=== PATIENT | female | born 1960 | race Caucasian/White ===

== ENCOUNTER → 2022-10-30 | Outpatient (CLI) | payer BC ==
--- NOTE | 2022-10-30 11:42 | US ---
EXAMINATION TYPE: US carotid duplex BILAT DATE OF EXAM: 10/30/2022 COMPARISON: NONE CLINICAL HISTORY: I87.8 DISORDER OF VEINS. enlarged neck per physician, no h/o stroke TECHNIQUE: Carotid duplex ultrasound examination. Indirect Doppler criteria was utilized. FINDINGS: EXAM MEASUREMENTS: RIGHT: Peak Systolic Velocity (PSV) cm/sec ----- Right CCA: 72.8 ----- Right ICA: 79.1 ----- Right ECA: 67.4 ICA/CCA ratio: 1.1 RIGHT: End Diastole cm/sec ----- Right CCA: 19.4 ----- Right ICA: 30.2 ----- Right ECA: 10.4 LEFT: Peak Systolic Velocity (PSV) cm/sec ----- Left CCA: 82.6 ----- Left ICA: 109.5 ----- Left ECA: 53.5 ICA/CCA ratio: 1.3 LEFT: End Diastole cm/sec ----- Left CCA: 25.9 ----- Left ICA: 37.0 ----- Left ECA: 15.7 VERTEBRALS (direction of flow): Right Vertebral: Antegrade Left Vertebral: Antegrade Rhythm: Normal GIS TECHNICIAN NOTES: Mild heterogeneous plaque bilateral bulbs with no significant stenosis IMPRESSION: No evidence for hemodynamically significant stenosis Criteria for Assigning % of Stenosis / Diameter reduction (Estimation based on the indirect measurements of the internal carotid artery velocities (ICA PSV). 1. Normal (no stenosis)=ICA PSV < 125 cm/s: ratio < 2.0: ICA EDV<40 cm/s. 2. Less than 50% stenosis=ICA PSV < 125 cm/s: ratio < 2.0: ICA EDV<40 cm/s. 3. 50 to 69% stenosis=ICA PSV of 125 to 230 cm/s: ration 2.0 ? 4.0: ICA EDV 40-100 cm/s. 4. Greater than 70% stenosis to near occlusion= ICA PSV > 230 cm/s: ratio > 4.0: ICA EDV > 100 cm/s. 5. Near occlusion= ICA PSV velocities may be low or undetectable: variable ratio and ICA EDV. 6. Total occlusion=unable to detect flow.
--- NOTE | 2022-11-03 09:23 | MM ---
Reason for Exam: Screening (asymptomatic). Last mammogram was performed 7 year(s) and 3 month(s) ago. Patient History: Menarche at age 14. First Full-Term at age 22. Postmenopausal. Patient has history of breast feeding. Risk Values: Katalina 5 year model risk: 1.3%. NCI Lifetime model risk: 6.4%. Prior Study Comparison: 07/27/2015 Bilateral Screening Mammogram, [facility] . Tissue Density: There are scattered fibroglandular densities. Findings: Analyzed By CAD. There is no suspicious group of microcalcifications or new suspicious mass in either breast. Benign calcifications within both breasts. Chronic nodularity within the left breast. Overall Assessment: Benign, BI-RAD 2 Management: Screening Mammogram of both breasts in 1 year. A clinical breast exam by your physician is recommended on an annual basis and results should be correlated with mammographic findings. Electronically signed and approved by: Christian Julian D.O.
== END | disposition home or self-care (01) ==
LOC: RADUSWWP 10:44
PROVIDERS: ATTEND Family Medicine
DX: Z12.31 Encounter for screening mammogram for malignant neoplasm of breast (principal); I87.8 Other specified disorders of veins; R22.1 Localized swelling, mass and lump, neck; Z78.0 Asymptomatic menopausal state
CPT/HCPCS: 77063; 77067; 93880

== ENCOUNTER 2023-03-22 16:09 | Emergency (ER) | payer BC ==
[2023-03-22 16:29] VITALS: RESP 18
--- NOTE | 2023-03-22 17:02 | ED ---
Chest Pain HPI - General Chief Complaint: Chest Pain Stated Complaint: positive SVT R arm Time Seen by Provider: 03/22/23 16:33 Source: patient Mode of arrival: ambulatory Limitations: no limitations - History of Present Illness Initial Comments: 62-year-old female with past medical history of DVT/PE who presents to the emergency department with chest pain. Reports that over the past couple of days she has had intermittent sharp shooting chest pain. No associated nausea or vomiting, no fevers chills or cough. No history of coronary disease. 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 She is not currently on any anticoagulation. She felt a lump in her right arm earlier this morning. She went into her primary care office who recommended that she have an ultrasound performed. It demonstrated a superficial thrombophlebitis. Because of her reported chest pain her primary care physician recommended that she have a CT of her chest performed. Patient presents today for this evaluation. She denies any active chest pain right now. No calf pain or swelling. No other alleviating, precipitating or modifying factors - Related Data Home Medications Medication Instructions Recorded Confirmed Aspirin EC [Ecotrin] 325 mg PO DAILY 03/22/23 03/22/23 Famotidine 20 mg PO DAILY 03/22/23 03/22/23 polyethylene glycoL 3350 [Miralax] 17 gm PO DAILY PRN 03/22/23 03/22/23 Allergies Allergy/AdvReac Type Severity Reaction Status Date / Time Iodinated Contrast Media Allergy Dyspnea Verified 03/22/23 18:45 Review of Systems ROS Statement: Those systems with pertinent positive or pertinent negative responses have been documented in the HPI. ROS Other: All systems not noted in ROS Statement are negative. Past Medical History Past Medical History: GERD/Reflux Additional Past Medical History / Comment(s): blood clot left leg History of Any Multi-Drug Resistant Organisms: None Reported Past Surgical History: Bladder Surgery, Hysterectomy Past Psychological History: No Psychological Hx Reported Smoking Status: Never smoker Past Alcohol Use History: Occasional Past Drug Use History: None Reported General Exam Limitations: no limitations General appearance: alert, in no apparent distress Head exam: Present: atraumatic, normocephalic, normal inspection Eye exam: Present: normal appearance, PERRL, EOMI. Absent: scleral icterus, conjunctival injection, periorbital swelling ENT exam: Present: normal exam, mucous membranes moist Neck exam: Present: normal inspection. Absent: tenderness, meningismus, lymphadenopathy Respiratory exam: Present: normal lung sounds bilaterally. Absent: respiratory distress, wheezes, rales, rhonchi, stridor Cardiovascular Exam: Present: regular rate, normal rhythm, normal heart sounds. Absent: systolic murmur, diastolic murmur, rubs, gallop, clicks GI/Abdominal exam: Present: soft, normal bowel sounds. Absent: distended, tenderness, guarding, rebound, rigid Extremities exam: Present: normal inspection, full ROM, normal capillary refill. Absent: tenderness, pedal edema, joint swelling, calf tenderness Back exam: Present: normal inspection Neurological exam: Present: alert, oriented X3, CN II-XII intact Psychiatric exam: Present: normal affect, normal mood Skin exam: Present: warm, dry, intact, normal color. Absent: rash Course Vital Signs 03/22/23 03/22/23 03/22/23 16:26 18:07 20:11 Temperature 97.8 F 98 F 98.6 F Pulse Rate 64 52 L 68 Respiratory 18 18 18 Rate Blood Pressure 116/71 123/70 113/85 O2 Sat by Pulse 98 98 94 L Oximetry Chest Pain MDM - MDM Was pt. sent in by a medical professional or institution (, PA, JAMMER OPERATOR, urgent care, hospital, or [facility]...) When possible be specific @ -Was sent in by her primary care office Did you speak to anyone other than the patient for history (EMS, parent, family, police, friend...)? What history was obtained from this source @ -No Did you review nursing and triage notes (agree or disagree)? Why? @ -I reviewed and agree with nursing and triage notes Were old charts reviewed (outside hosp., previous admission, EMS record, old EKG, old radiological studies, urgent care reports/EKG's, [facility] records)? Report findings @ -No old charts were reviewed Differential Diagnosis (chest pain, altered mental status, abdominal pain women, abdominal pain men, vaginal bleeding, weakness, fever, dyspnea, syncope, headache, dizziness, GI bleed, back pain, seizure, CVA, palpatations, mental health, musculoskeletal)? @ -Differential Chest Pain: Stable Angina, Unstable Angina, STEMI, NSTEMI Aortic Dissection, Pneumothorax, Musculoskeletal, Esophageal Spasm GERD, Cholecystitis, Pancreatitis, Zoster, this is not meant to be an all-inclusive list. EKG interpreted by me (3pts min.). @ -yes and demonstrates sinus bradycardia with a rate of 54. GA interval 190. QRS 96. QTC of 420. No acute ST segment elevations. Inverted T-wave in lead 3 X-rays interpreted by me (1pt min.). @ -None done CT interpreted by me (1pt min.). @ -Yes and demonstrates no PE U/S interpreted by me (1pt. min.). @ -None done What testing was considered but not performed or refused? (CT, X-rays, U/S, labs)? Why? @ -None What meds were considered but not given or refused? Why? @ -None Did you discuss the management of the patient with other professionals (professionals i.e. , PA, JAMMER OPERATOR, lab, RT, psych nurse, psychotherapist social worker, pyridine operator, teacher, community arts officer, case briefer)? Give summary @ -No Was smoking cessation discussed for >3mins.? @ -No Was critical care preformed (if so, how long)? @ -No Were there social determinants of health that impacted care today? How? (Homelessness, low income, unemployed, alcoholism, drug addiction, transportation, low edu. Level, literacy, decrease access to med. care, senior living, rehab)? @ -No Was there de-escalation of care discussed even if they declined (Discuss DNR or withdrawal of care, Hospice)? DNR status @ -No What co-morbidities impacted this encounter? (DM, HTN, Smoking, COPD, CAD, Cancer, CVA, ARF, Chemo, Hep., AIDS, mental health diagnosis, sleep apnea, morbid obesity)? @ -History of PE and DVT Was patient admitted / discharged? Hospital course, mention meds given and route, prescriptions, significant lab abnormalities, going to OR and other pertinent info. @ -Upon arrival patient was placed in room 7. A thorough history and physical exam was performed. IV access is established and laboratory studies are conducted. Patient has no active chest pain. She is sent for a CT of her chest as she is not a low risk candidate. CT does not demonstrate a PE. These results are discussed the patient. She is stable for discharge home at this time. Instructed to follow back up again with her primary care doctor. May use warm compresses for her superficial clots in her right arm. Return for any new or worsening symptoms. Patient was agreeable to this plan and she was discharged in stable condition Undiagnosed new problem with uncertain prognosis? @ -Yes Drug Therapy requiring intensive monitoring for toxicity (Heparin, Nitro, Insulin, Cardizem)? @ -No Were any procedures done? @ -No Diagnosis/symptom? @ -acute Chest pain, acute superficial thrombus right arm, hx pe/dvt Acute, or Chronic, or Acute on Chronic? @ -See above Uncomplicated (without systemic symptoms) or Complicated (systemic symptoms)? @ -Complicated Side effects of treatment? @ -No Exacerbation, Progression, or Severe Exacerbation? @ -No Poses a threat to life or bodily function? How? (Chest pain, [place], [place], pneumonia, PE, COPD, DKA, ARF, appy, cholecystitis, CVA, Diverticulitis, Homicidal, Suicidal, threat to staff... and all critical care pts) @ -No Disposition Clinical Impression: Chest pain Disposition: HOME SELF-CARE Condition: Stable Instructions (If sedation given, give patient instructions): Chest Pain (ED) Additional Instructions: Please follow-up with your primary care doctor and return for any new or worsening symptoms Is patient prescribed a controlled substance at d/c from ED?: No Referrals: Ken Hudson DO [Primary Care Provider] - 1-2 days Time of Disposition: 19:26
[2023-03-22 17:25] LABS: Basophils % (A) 0 %; Eosinophils # (A) 0.3 k/uL (0-0.7); Eosinophils % (A) 4 %; HCT 43.8 % (34.0-46.0); HGB 14.3 gm/dL (11.4-16.0); Lymphocytes # (A) 1.7 k/uL (1.0-4.8); Lymphocytes % (A) 29 %; MCH 30.9 pg (25.0-35.0); MCHC 32.7 g/dL (31.0-37.0); MCV 94.4 fL (80.0-100.0); Monocytes # (A) 0.3 k/uL (0-1.0); Monocytes % (A) 4 %; Neutrophils # (A) 3.7 k/uL (1.3-7.7); Neutrophils % (A) 60 %; Platelet Count 216 k/uL (150-450); RBC 4.64 m/uL (3.80-5.40); RDW 13.4 % (11.5-15.5); WBC 6.1 k/uL (3.8-10.6)
[2023-03-22 17:42] LABS: ALT 16 U/L (4-34); AST 30 U/L (14-36); African American GFR (CKD) >90 (>60 ml/min/1.73 sqM); Albumin 3.9 g/dL (3.5-5.0); Alkaline Phosphatase 105 U/L (38-126); Anion Gap 6 mmol/L; Blood Urea Nitrogen 8 mg/dL (7-17); Calcium 9.3 mg/dL (8.4-10.2); Carbon Dioxide 26 mmol/L (22-30); Chloride 107 mmol/L (98-107); Glucose 86 mg/dL (74-99); Magnesium 2.1 mg/dL (1.6-2.3); Non-African American GFR(CKD) 79 (>60 ml/min/1.73 sqM); Sodium 139 mmol/L (137-145); Total Bilirubin 0.5 mg/dL (0.2-1.3); Total Protein 7.1 g/dL (6.3-8.2)
[2023-03-22] MEDS ORDERED: diphenhydrAMINE 50 MG/ML 1 ML VIAL IVP STA (17:46)
[2023-03-22] MEDS ORDERED: FAMOTIDINE 20 MG/2 ML VIAL IV STA (17:46)
[2023-03-22] MEDS ORDERED: methylPREDNISolone SOD SUCCI 125 MG/2 ML VIAL IV STA (17:46)
[2023-03-22 17:47] LABS: Partial Thromboplastin Time 23.5 sec (22.0-30.0); Prothrombin Time 10.7 sec (9.0-12.0)
[2023-03-22 17:50] LABS: NT-Pro-B-Type Natriuretic Pept 81 pg/mL
--- NOTE | 2023-03-22 18:50 | CT ---
EXAMINATION TYPE: CT chest angio for PE CT DLP: 677.8 mGycm, Automated exposure control for dose reduction was used. DATE OF EXAM: 03/22/2023 6:43 PM COMPARISON: None CLINICAL INDICATION:Female, 62 years old with history of chest pain, hx dvt/pe; history of PE, chest pain TECHNIQUE/CONTRAST: CTA scan of the thorax is performed with IV Contrast, patient injected with 100 cc mL of Isovue 370, pulmonary embolism protocol. MIP images are created and reviewed. FINDINGS: Pulmonary Artery: There is no evidence for a filling defect within the pulmonary vasculature to sugge st acute pulmonary embolism. The pulmonary artery is of normal size. Lungs/Pleura: No evidence of focal consolidation, pleural effusion or pneumothorax. Left lower lobe s ubsegmental atelectasis. Airway: Large airways are patent. Heart: Heart is within normal limits for size.. No pericardial effusion. Vasculature: No evidence of aortic aneurysm.. Collateral vessel identified from the left subclavian v ein to the SVC. Mediastinum: No gross evidence of adenopathy. Musculoskeletal: Mild degenerative disc disease changes are present throughout the thoracolumbar spin e. No acute osseous abnormality. Soft Tissues: Unremarkable. Lower neck: No significant findings. Upper Abdomen: Large hiatal hernia containing most of the stomach. Subcentimeter hypodense focus with in the right hepatic lobe which is too small to characterize.. IMPRESSION: 1. No evidence of pulmonary embolism. 2. Large hiatal hernia containing most of the stomach.
[2023-03-22 20:15] VITALS: BP 113/85; PULSE 68; TEMP 98.6
== END 2023-03-22 20:16 | disposition home or self-care (01) ==
LOC: EC 16:09
DX: I82.90 Acute embolism and thrombosis of unspecified vein (principal); R07.9 Chest pain, unspecified; R00.1 Bradycardia, unspecified; K21.9 Gastro-esophageal reflux disease without esophagitis; Z79.82 Long term (current) use of aspirin; Z79.899 Other long term (current) drug therapy; Z86.711 Personal history of pulmonary embolism; Z86.718 Personal history of other venous thrombosis and embolism
CPT/HCPCS: 36415; 93005; 85379; 83880; 80053; 83735; 84484; 85025; 85610; 85730; 71275; 99285; 96374; 96375 ×2; J1200; J2930; J3490; Q9967

== ENCOUNTER → 2023-03-22 | Outpatient (CLI) | payer BC ==
--- NOTE | 2023-03-22 16:29 | US ---
EXAMINATION TYPE: US venous doppler duplex LE LT DATE OF EXAM: 03/22/2023 3:32 PM COMPARISON: NONE CLINICAL INDICATION: Female, 62 years old with history of R22.32 HX BLOOD CLOT M79.605 HX BLOOD CLOT; HX dvt. On aspirin. No redness or swelling. SIDE PERFORMED: Left TECHNIQUE: The lower extremity deep venous system is examined utilizing real time linear array sonog jacquelyn with graded compression, doppler sonography and color-flow sonography. VESSELS IMAGED: Common Femoral Vein Deep Femoral Vein Greater Saphenous Vein * Femoral Vein Popliteal Vein Small Saphenous Vein * Proximal Calf Veins (* superficial vessels) Grayscale, color doppler, spectral doppler imaging performed of the deep veins of the lower extremiti es. There is normal flow, compressibility, vascular waveforms. Left Leg: Negative for DVT IMPRESSION: No deep venous thrombosis of the left lower extremity.
--- NOTE | 2023-03-22 16:30 | US ---
EXAMINATION TYPE: US venous doppler duplex UE RT DATE OF EXAM: 03/22/2023 COMPARISON: NONE CLINICAL INDICATION: Female, 62 years old with history of R22.32 HX BLOOD CLOT M79.605 HX BLOOD CLOT; Hx DVT in Left leg. On aspirin. Palpable at right lateral elbow not at recent IV site. SIDE PERFORMED: Right Right Arm: Negative for DVT. Positive for small SVT at patients area of concern near elbow, not near a deep vein. IMPRESSION: 1. No deep venous thrombosis of the right upper trauma. 2. Small superficial thrombosis at the patient's region of concern near the elbow.
--- NOTE | 2023-03-22 18:55 | XR ---
EXAMINATION TYPE: XR lumbar spine 2 or 3V DATE OF EXAM: 03/22/2023 6:45 PM INDICATION: Patient age:Female; 62 years old; Reason for study: [id number] PAIN; COMPARISON: None TECHNIQUE: Frontal, lateral and coned in L5-S1 lateral views of the spine. FINDINGS: Excreted IV contrast is seen within the bilateral renal collecting systems. No evidence for obstructive uropathy. No evidence of any acute osseous pathology. No evidence of loss of vertebral body height is seen. There is normal alignment of the lumbar vertebral bodies. Mild scattered disc sp monse narrowing. Multilevel marginal osteophyte formation throughout the visualized spine. There is fac et joint arthropathy throughout the spine. Scattered at least mild neural foraminal stenosis. IMPRESSION: 1. No acute fracture. 2. Mild multilevel disc degeneration. 3. Excretion of IV contrast within the bilateral renal collecting systems without evidence of obstruc tive uropathy.
== END | disposition home or self-care (01) ==
LOC: RADUSWWP 14:43
PROVIDERS: ATTEND Family Medicine
DX: I82.811 Embolism and thrombosis of superficial veins of right lower extremity (principal); R22.32 Localized swelling, mass and lump, left upper limb; M51.36 Other intervertebral disc degeneration, lumbar region; M79.605 Pain in left leg; Z86.718 Personal history of other venous thrombosis and embolism
CPT/HCPCS: 72100

== ENCOUNTER 2023-03-29 15:09 | Observation (INO) | payer BC ==
[2023-03-29] MEDS ORDERED: HEPARIN SODIUM 1,000 UN/ML (10ML VL) IV PRN ×2 (15:56→23:29)
[2023-03-29] MEDS ORDERED: HEPARIN SODIUM 1,000 UN/ML (10ML VL) IV ONE (15:56)
[2023-03-29] MEDS ORDERED: NALOXONE 0.4 MG/ML 1 ML VIAL IV PRN (15:58)
[2023-03-29] MEDS ORDERED: HYDROcodone/APAP 5-325MG 1 EACH TAB PO PRN (15:58)
[2023-03-29] MEDS ORDERED: ACETAMINOPHEN TAB 325 MG TAB PO PRN (15:58)
[2023-03-29] MEDS ORDERED: ONDANSETRON 4 MG/2 ML VIAL IVP PRN (15:58)
--- NOTE | 2023-03-29 15:58 | ED ---
Extremity Problem HPI - General Chief complaint: Abdominal Pain Stated complaint: L arm DVT Time Seen by Provider: 03/29/23 15:33 Source: patient, RN notes reviewed Mode of arrival: ambulatory Limitations: no limitations - History of Present Illness Initial comments: This is a 62-year-old female who presents to the emergency department for a DVT in the left upper extremity. States that she had an outpatient ultrasound today due to pain in the left arm. This revealed a DVT in the left subclavian vein and she was instructed to come to the emergency department for heparin. Not currently taking any blood thinners aside from aspirin. She was given a prescription for Eliquis that has not yet been started, it would have been started today, however they instructed her to come to the emergency department for heparin instead. She was evaluated here about a week ago for right arm pain and was found to have a superficial venous thrombosis. An IV was put in the left arm at that time, and she believes that this is what caused this new DVT. She does have a history of DVT in the left lower extremity. Currently denies any chest pain or shortness of breath. MD Complaint: extremity pain - Related Data Home Medications Medication Instructions Recorded Confirmed Aspirin EC [Ecotrin] 325 mg PO DAILY 03/22/23 03/29/23 Famotidine 20 mg PO DAILY 03/22/23 03/29/23 Apixaban [Eliquis Starter Pack 5 - 10 mg PO DIRECTED 03/29/23 03/29/23 (for VTE)] Cetirizine HCl [Zyrtec] 10 mg PO DAILY 03/29/23 03/29/23 Allergies Allergy/AdvReac Type Severity Reaction Status Date / Time Iodinated Contrast Media Allergy Dyspnea Verified 03/29/23 16:51 Review of Systems ROS Statement: Those systems with pertinent positive or pertinent negative responses have been documented in the HPI. ROS Other: All systems not noted in ROS Statement are negative. Past Medical History Past Medical History: Deep Vein Thrombosis (DVT), GERD/Reflux Additional Past Medical History / Comment(s): blood clot left leg History of Any Multi-Drug Resistant Organisms: None Reported Past Surgical History: Bladder Surgery, Hysterectomy Past Psychological History: No Psychological Hx Reported Smoking Status: Never smoker Past Alcohol Use History: Occasional Past Drug Use History: None Reported General Exam Limitations: no limitations General appearance: alert, in no apparent distress Head exam: Present: atraumatic, normocephalic, normal inspection Respiratory exam: Present: normal lung sounds bilaterally. Absent: respiratory distress, wheezes, rales, rhonchi, stridor Cardiovascular Exam: Present: regular rate, normal rhythm, normal heart sounds. Absent: systolic murmur, diastolic murmur, rubs, gallop, clicks Extremities exam: Present: other (Mild diffuse tenderness and erythema to the left upper extremity. 2+ radial pulses. Capillary refill less than 1 second.) Neurological exam: Present: alert, oriented X3, CN II-XII intact Psychiatric exam: Present: normal affect, normal mood Skin exam: Present: warm, dry, intact, normal color. Absent: rash Course Vital Signs 03/29/23 15:21 Temperature 97 F L Pulse Rate 68 Respiratory 20 Rate Blood Pressure 106/69 O2 Sat by Pulse 96 Oximetry Medical Decision Making - Medical Decision Making This is a 62-year-old female who presents to the emergency department for left arm pain secondary to a DVT. Was pt. sent in by a medical professional or institution? @ -Yes, her PCP Did you speak to anyone other than the patient for history? @ -No Did you review nursing and triage notes? @ -Yes, and I agree, it is accurate with regards to the patient's symptoms. Were old charts reviewed? @ -Yes, outpatient Duplex US of the left upper extremity obtained today. This demonstrates a DVT in the left subclavian vein and superficial thrombosis in the basilic vein. Differential Diagnosis? @ -Differential Arm pain: Fracture, dislocation, contusion, cellulitis, DVT, arterial occlusion, this is not meant to be an all-inclusive list. EKG interpreted by me (3pts min.)? @ -Not obtained X-rays interpreted by me (1pt min.)? @ -Not obtained CT interpreted by me (1pt min.)? @ -Not obtained U/S interpreted by me (1pt. min.)? @ -Not obtained What testing was considered but not performed? (CT, X-rays, U/S, labs)? Why? @ -None What meds were considered but not given? Why? @ -None Did you discuss the management of the patient with other professionals? @ -Yes, Dr. Zamora, who accepts the patient for admission. Did you reconcile home meds? @ -Yes Was smoking cessation discussed for >3mins.? @ -No Was critical care preformed (if so, how long)? @ -No Were there social determinants of health that impacted care today? How? (Homelessness, low income, unemployed, alcoholism, drug addiction, t ransportation, low edu. Level, literacy, decrease access to med. care, group home, rehab)? @ -No Was there de-escalation of care discussed even if they declined? (Discuss DNR or withdrawal of care, Hospice)? @ -No What co-morbidities impacted this encounter? (DM, HTN, Smoking, COPD, CAD, Cancer, CVA, Hep., AIDS, mental health diagnosis, sleep apnea, morbid obesity)? @ -Morbid obesity Was patient admitted / discharged? @ -Admitted. Outpatient ultrasound obtained earlier today demonstrates a DVT in the left subclavian vein and a superficial thrombosis in the basilic vein. Patient is not exhibiting any chest pain or shortness of breath, and no further imaging was obtained in the emergency department. Given the location of the DVT and her PCP's request, she was admitted to medicine for further management and started on heparin protocol. Vascular surgery listed as consult. Baseline lab work was obtained prior to admission as well, and on review this was found to be nonactionable. Undiagnosed new problem with uncertain prognosis? @ -None Drug Therapy requiring intensive monitoring for toxicity (Heparin, Nitro, Insulin, Cardizem)? @ -None Were any procedures done? @ -None Diagnosis/symptom? @ -Left upper extremity DVT Acute, or Chronic, or Acute on Chronic? @ -Acute Uncomplicated (without systemic symptoms) or Complicated (systemic symptoms)? @ -Uncomplicated Side effects of treatment? @ -None Exacerbation, Progression, or Severe Exacerbation] @ -Not applicable Poses a threat to life or bodily function? @ -Yes, if it were travel to the point of causing a pulmonary embolus, it could become a life-threatening issue. This case was discussed in detail with the attending ED physician, Dr. Nava. Presentation, findings, and treatment plan discussed in detail as well. - Lab Data Result diagrams: 03/29/23 16:29 03/29/23 16:29 - Radiology Data Radiology results: report reviewed, image reviewed Disposition Clinical Impression: Acute deep vein thrombosis (DVT) of left upper extremity Disposition: ADMITTED IP TO THIS HOSP
[2023-03-29] MEDS ORDERED: HEPARIN SOD,PORK IN 0.45% NACL 25,000 UNIT in 0.45% NACL 1 250ML.BAG IV SCH ×2 (16:00→23:30)
[2023-03-29 17:44] LABS: Basophils % (A) 0 %; Eosinophils # (A) 0.3 k/uL (0-0.7); Eosinophils % (A) 5 %; HCT 44.4 % (34.0-46.0); HGB 14.6 gm/dL (11.4-16.0); Lymphocytes % (A) 34 %; MCH 31.6 pg (25.0-35.0); MCHC 32.9 g/dL (31.0-37.0); MCV 96.2 fL (80.0-100.0); Mean Platelet Volume 8.1; Monocytes # (A) 0.3 k/uL (0-1.0); Monocytes % (A) 5 %; Neutrophils # (A) 3.2 k/uL (1.3-7.7); Neutrophils % (A) 53 %; Platelet Count 215 k/uL (150-450); RBC 4.61 m/uL (3.80-5.40); RDW 13.2 % (11.5-15.5)
[2023-03-29 17:58] LABS: Partial Thromboplastin Time 23.5 sec (22.0-30.0); Prothrombin Time 10.3 sec (9.0-12.0)
[2023-03-29 18:03] LABS: ALT 17 U/L (4-34); AST 35 U/L (14-36); African American GFR (CKD) 67 (>60 ml/min/1.73 sqM); Albumin 3.9 g/dL (3.5-5.0); Alkaline Phosphatase 109 U/L (38-126); Anion Gap 7 mmol/L; Blood Urea Nitrogen 15 mg/dL (7-17); Calcium 9.3 mg/dL (8.4-10.2); Carbon Dioxide 25 mmol/L (22-30); Chloride 106 mmol/L (98-107); Glucose 94 mg/dL (74-99); Non-African American GFR(CKD) 58 (>60 ml/min/1.73 sqM); Potassium 4.5 mmol/L (3.5-5.1); Sodium 138 mmol/L (137-145); Total Bilirubin 0.4 mg/dL (0.2-1.3); Total Protein 7.1 g/dL (6.3-8.2)
[2023-03-29 23:55] VITALS: RESP 16
[2023-03-30 07:54] VITALS: BP 85/54; PULSE 72; TEMP 97.9
[2023-03-30] MEDS ORDERED: ASPIRIN 325 MG TAB PO SCH (09:00)
[2023-03-30] MEDS ORDERED: APIXABAN 5 MG TAB PO SCH (09:00)
[2023-03-30] MEDS ORDERED: FAMOTIDINE 20 MG TAB PO SCH (09:00)
[2023-03-30] MEDS ORDERED: LORATADINE 10 MG TAB PO SCH (09:00)
--- NOTE | 2023-03-30 09:52 | P.GSCN ---
History of Present Illness Consult date: 03/30/23 Reason for Consult: Left upper extremity DVT Requesting physician: Giovana Logan History of present illness: This is a pleasant 62-year-old female who presented to the emergency department with complaints of discomfort in her left upper extremity. Apparently patient recently was diagnosed with a right upper extremity superficial venous thrombus last week. She had underwent hysterectomy in January and had an IV at that time in her right upper extremity started noticing a couple weeks ago some discomfort in the wrist area and then last week the pain was traveling up her arm. She came in to the emergency department was told she had a superficial thrombus, was not started on any anticoagulation but in the meantime he did start an IV in the left upper extremity. Patient states yesterday she started noticing some lumps on her left forearm was concern for possible blood clot. She saw her PCP who ordered venous duplex that reports incomplete compression with internal echoes within the basilic vein suggesting SVT, similar internal echoes within the subclavian vein suggesting positive for DVT. Patient was started on a heparin drip. She has no swelling to the left upper extremity. She denies any pain tra veling up her arm. She has some tenderness in the lower forearm. She denies any shortness of breath, chest pain, abdominal pain, fevers or chills. Patient also does have a history of lower extremity DVT in 2019 which she states was following traveling. She states she did see a planning aide out of [facility] that stated that she does have some type of possible clotting disorder however was not kept on lifelong anticoagulation. Review of Systems A 14 point review systems was completed all pertinent positives and negatives as stated in the HPI. Past Medical History Past Medical History: Deep Vein Thrombosis (DVT), GERD/Reflux Additional Past Medical History / Comment(s): blood clot left leg History of Any Multi-Drug Resistant Organisms: None Reported Past Surgical History: Bladder Surgery, Hysterectomy Past Psychological History: No Psychological Hx Reported Smoking Status: Never smoker Past Alcohol Use History: Occasional Past Drug Use History: None Reported Medications and Allergies Home Medications Medication Instructions Recorded Confirmed Type Aspirin EC [Ecotrin] 325 mg PO DAILY 03/22/23 03/29/23 History Famotidine 20 mg PO DAILY 03/22/23 03/29/23 History Apixaban [Eliquis Starter Pack 5 - 10 mg PO DIRECTED 03/29/23 03/29/23 History (for VTE)] Cetirizine HCl [Zyrtec] 10 mg PO DAILY 03/29/23 03/29/23 History Allergies Allergy/AdvReac Type Severity Reaction Status Date / Time Iodinated Contrast Media Allergy Dyspnea Verified 03/29/23 16:51 Surgical - Exam Vital Signs Temp Pulse Resp BP Pulse Ox 97 F L 68 20 106/69 96 03/29/23 15:21 03/29/23 15:21 03/29/23 15:21 03/29/23 15:21 03/29/23 15:21 General appearance: The patient is alert, oriented, appears in no acute distress. HET: Head is normocephalic and atraumatic. Pupils are equal and reactive. Neck: Supple. Heart: Regular. Lungs: Equal expansion, normal respiratory effort. Abdomen: Soft, nontender, nondistended. Extremities: Normal skin color and turgor. Left upper extremity without any swelling. Left forearm with some nodularity. Palpable radial pulses bilateral. Neurological: No focal deficits. Strength and sensation are grossly intact. Results - Labs 03/29/23 16:29 03/29/23 16:29 Abnormal Lab Results - Last 24 Hours (Table) 03/29/23 03/30/23 Range/Units 22:31 05:30 APTT 190.8 H* 76.4 H (22.0-30.0) sec Diabetes panel 03/29/23 Range/Units 16:29 Sodium 138 (137-145) mmol/L Potassium 4.5 (3.5-5.1) mmol/L Chloride 106 (98-107) mmol/L Carbon Dioxide 25 (22-30) mmol/L BUN 15 (7-17) mg/dL Creatinine 1.04 (0.52-1.04) mg/dL Glucose 94 (74-99) mg/dL Calcium 9.3 (8.4-10.2) mg/dL AST 35 (14-36) U/L ALT 17 (4-34) U/L Alkaline Phosphatase 109 (38-126) U/L Total Protein 7.1 (6.3-8.2) g/dL Albumin 3.9 (3.5-5.0) g/dL Calcium panel 03/29/23 Range/Units 16:29 Calcium 9.3 (8.4-10.2) mg/dL Albumin 3.9 (3.5-5.0) g/dL Pituitary panel 03/29/23 Range/Units 16:29 Sodium 138 (137-145) mmol/L Potassium 4.5 (3.5-5.1) mmol/L Chloride 106 (98-107) mmol/L Carbon Dioxide 25 (22-30) mmol/L BUN 15 (7-17) mg/dL Creatinine 1.04 (0.52-1.04) mg/dL Glucose 94 (74-99) mg/dL Calcium 9.3 (8.4-10.2) mg/dL Adrenal panel 03/29/23 Range/Units 16:29 Sodium 138 (137-145) mmol/L Potassium 4.5 (3.5-5.1) mmol/L Chloride 106 (98-107) mmol/L Carbon Dioxide 25 (22-30) mmol/L BUN 15 (7-17) mg/dL Creatinine 1.04 (0.52-1.04) mg/dL Glucose 94 (74-99) mg/dL Calcium 9.3 (8.4-10.2) mg/dL Total Bilirubin 0.4 (0.2-1.3) mg/dL AST 35 (14-36) U/L ALT 17 (4-34) U/L Alkaline Phosphatase 109 (38-126) U/L Total Protein 7.1 (6.3-8.2) g/dL Albumin 3.9 (3.5-5.0) g/dL - Imaging Comments: Left upper extremity venous duplex: Incomplete compression with internal echoes within the basilic vein suggesting SVT. Similar internal echoes within the subclavian vein suggesting positive for DVT Assessment and Plan Assessment: 1. Left upper extremity subclavian vein DVT, left basilic vein SVT status post IV access 2. History of DVT, right upper extremity SVT Plan: 1. Elevate left upper extremity as needed for swelling 2. Discontinue heparin drip and start Eliquis 10 mg twice a day, taper dose 3. Patient will likely need lifetime anticoagulation, consider follow up outpatient with hematology 4. Patient is cleared from vascular surgery for discharge Thank you for this consultation, we will sign off at this time. The impression and plan of care has been dictated as directed. Dr.Cuppari Morton performed a history and examination of this patient, discussed the same with the dictator. I agree with the dictator's note ,documented as a scribe. Any additional findings or plans will be noted.
--- NOTE | 2023-03-30 10:55 | P.HPIM ---
History of Present Illness H&P Date: 03/30/23 Chief Complaint: DVT * 62-year-old lady with past medical history significant for gastroesophageal reflux disease, history of DVT Motrin anticoagulation, recent history of hyst erectomy presented to the emergency Department percent enough for him and normal right upper extremity venous ultrasound. Patient was diagnosed with DVT left upper extremity along with superficial thrombus. * Venous ultrasound showed incomplete compression with Ms. and Levaquin so for suggesting superficial vein thrombosis subclavian vein posture for deep vein thrombosis of left upper extremity * Patient was started on IV heparin and admitted to medical floor with consultation from vascular surgery * Patient denied fever, chills, chest pain, abdominal pain nausea vomiting or blood in stool REVIEW OF SYSTEMS: Left arm swelling CONSTITUTIONAL: No fever, no malaise, no fatigue. HEENT: No recent visual problems or hearing problems. Denied any sore throat. CARDIOVASCULAR: No chest pain, orthopnea, PND, no palpitations, no syncope. PULMONARY: No shortness of breath, no cough, no hemoptysis. GASTROINTESTINAL: No diarrhea, no nausea, no vomiting, no abdominal pain. NEUROLOGICAL: No headaches, no weakness, no numbness. HEMATOLOGICAL: Denies any bleeding or petechiae. GENITOURINARY: Denies any burning micturition, frequency, or urgency. MUSCULOSKELETAL/RHEUMATOLOGICAL: Denies any joint pain, swelling, or any muscle pain. ENDOCRINE: Denies any polyuria or polydipsia. PHYSICAL EXAMINATION: GENERAL: The patient is alert and oriented x3, not in any acute distress. Well developed, well nourished. HEENT: Pupils are round and equally reacting to light. EOMI. No scleral icterus. No conjunctival pallor. Normocephalic, atraumatic. No pharyngeal erythema. No thyromegaly. CARDIOVASCULAR: S1 and S2 present. No murmurs, rubs, or gallops. PULMONARY: Chest is clear to auscultation, no wheezing or crackles. ABDOMEN: Soft, nontender, nondistended, normoactive bowel sounds. No palpable organomegaly. MUSCULOSKELETAL: No joint swelling or deformity. EXTREMITIES: No cyanosis, clubbing, or pedal edema. NEUROLOGICAL: Gross neurological examination did not reveal any focal deficits. SKIN: No rashes. Past Medical History Past Medical History: Deep Vein Thrombosis (DVT), GERD/Reflux Additional Past Medical History / Comment(s): blood clot left leg History of Any Multi-Drug Resistant Organisms: None Reported Past Surgical History: Bladder Surgery, Hysterectomy Past Psychological History: No Psychological Hx Reported Smoking Status: Never smoker Past Alcohol Use History: Occasional Past Drug Use History: None Reported Medications and Allergies Home Medications Medication Instructions Recorded Confirmed Type Aspirin EC [Ecotrin] 325 mg PO DAILY 03/22/23 03/29/23 History Famotidine 20 mg PO DAILY 03/22/23 03/29/23 History Apixaban [Eliquis Starter Pack 5 - 10 mg PO DIRECTED 03/29/23 03/29/23 History (for VTE)] Cetirizine HCl [Zyrtec] 10 mg PO DAILY 03/29/23 03/29/23 History Allergies Allergy/AdvReac Type Severity Reaction Status Date / Time Iodinated Contrast Media Allergy Dyspnea Verified 03/29/23 16:51 Physical Exam Vitals: Vital Signs Temp Pulse Pulse Resp BP BP Pulse Ox 03/30/23 07:00 97.9 F 72 16 85/54 96 03/30/23 00:05 97.7 F 61 16 110/68 97 03/29/23 22:30 97.5 F L 67 16 136/82 98 03/29/23 22:25 69 17 108/75 97 03/29/23 20:18 74 19 104/71 98 03/29/23 15:21 97 F L 68 20 106/69 96 Intake and Output 03/29/23 03/30/23 03/30/23 22:59 06:59 14:59 Intake Total 54.5 Balance 54.5 Intake: Intake, IV Titration 54.5 Amount Heparin Sod,Pork in 0.45% 54.5 NaCl 25,000 unit In 0.45 % NaCl 1 250ml.bag @ 10. 0667 UNITS/KG/HR 10 mls/ hr IV .Q24H [facility] Rx#: [id number] Other: Voiding Method Toilet Toilet # Voids 3 Weight 99.337 kg Results CBC & Chem 7: 03/29/23 16:29 03/29/23 16:29 Labs: Abnormal Lab Results - Last 24 Hours (Table) 03/29/23 03/30/23 03/30/23 Range/Units 22:31 05:30 07:22 APTT 190.8 H* 76.4 H 66.7 H (22.0-30.0) sec Assessment and Plan Assessment: Assessment and plan * Acute DVT left upper extremity involving subclavian vein * History of chronic DVT not on anticoagulation * Gastroesophageal reflux disease * Patient was started on IV heparin, with plan to transition to oral anticoagulation with outpatient follow PCP for refills. * Patient will need to be on lifelong antibiotic admission post discharge * Vascular surgery consulted upon admission * Will need outpatient hematology oncology follow-up * CODE STATUS is full code
--- NOTE | 2023-03-30 10:57 | P.DS ---
Providers Date of admission: 03/29/23 16:14 Expected date of discharge: 03/30/23 Attending physician: Jennifer Zamora MD Consults: 03/29/23 15:58 Consult Physician Urgent Consulting Provider: Brianna Stinson Consult Reason/Comments: DVT left subclavian vein Do you want consulting provider notified?: Yes Primary care physician: [facility] Hospital Course: * 62-year-old lady with past medical history significant for gastroesophageal reflux disease, history of DVT Motrin anticoagulation, recent history of hysterectomy presented to the emergency Department percent enough for him and normal right upper extremity venous ultrasound. Patient was diagnosed with DVT left upper extremity along with superficial thrombus. * Venous ultrasound showed incomplete compression with Ms. and Levaquin so for suggesting superficial vein thrombosis subclavian vein posture for deep vein thrombosis of left upper extremity * Patient was started on IV heparin and admitted to medical floor with consultation from vascular surgery * Patient denied fever, chills, chest pain, abdominal pain nausea vomiting or blood in stool PHYSICAL EXAMINATION: GENERAL: The patient is alert and oriented x3, not in any acute distress. Well developed, well nourished. HEENT: Pupils are round and equally reacting to light. EOMI. No scleral icterus. No conjunctival pallor. Normocephalic, atraumatic. No pharyngeal erythema. No thyromegaly. CARDIOVASCULAR: S1 and S2 present. No murmurs, rubs, or gallops. PULMONARY: Chest is clear to auscultation, no wheezing or crackles. ABDOMEN: Soft, nontender, nondistended, normoactive bowel sounds. No palpable organomegaly. MUSCULOSKELETAL: No joint swelling or deformity. EXTREMITIES: No cyanosis, clubbing, or pedal edema. NEUROLOGICAL: Gross neurological examination did not reveal any focal deficits. SKIN: No rashes. Assessment: Assessment and plan * Acute DVT left upper extremity involving subclavian vein * History of chronic DVT not on anticoagulation * Gastroesophageal reflux disease * Patient was started on IV heparin, with plan to transition to oral anticoagulation Eliquis starter pack 10 mg twice a day for 7 days followed by 5 mg twice a day>> patient states she already has prescription sent by her primary care provider. * Patient will need to be on lifelong anticoagulation * Appreciate input from vascular surgery Patient Condition at Discharge: Fair Plan - Discharge Summary New Discharge Prescriptions: Continue Aspirin EC [Ecotrin] 325 mg PO DAILY Famotidine 20 mg PO DAILY Cetirizine HCl [Zyrtec] 10 mg PO DAILY Apixaban [Eliquis Starter Pack (for VTE)] 5 - 10 mg PO DIRECTED Discharge Medication List Aspirin EC [Ecotrin] 325 mg PO DAILY 03/22/23 [History] Famotidine 20 mg PO DAILY 03/22/23 [History] Apixaban [Eliquis Starter Pack (for VTE)] 5 - 10 mg PO DIRECTED 03/29/23 [History] Cetirizine HCl [Zyrtec] 10 mg PO DAILY 03/29/23 [History] Follow up Appointment(s)/Referral(s): Ken Hudson DO [Primary Care Provider] - 1-2 days Discharge Disposition: HOME SELF-CARE
== END 2023-03-30 11:58 | disposition home or self-care (01) ==
LOC: EC 15:09 → 6NMEDSUR 16:14
PROVIDERS: ADMIT Internal Medicine; ATTEND Internal Medicine
DX: I82.B12 Acute embolism and thrombosis of left subclavian vein (principal); I82.613 Acute embolism and thrombosis of superficial veins of upper extremity, bilateral; K21.9 Gastro-esophageal reflux disease without esophagitis; E66.01 Morbid (severe) obesity due to excess calories; Z68.41 Body mass index [BMI] 40.0-44.9, adult; Z79.82 Long term (current) use of aspirin; Z79.01 Long term (current) use of anticoagulants; Z79.899 Other long term (current) drug therapy; Z91.041 Radiographic dye allergy status; Z86.718 Personal history of other venous thrombosis and embolism; Z90.710 Acquired absence of both cervix and uterus; Z98.890 Other specified postprocedural states
CPT/HCPCS: 96366 ×3; 96376; 96365; 99285; 80053; 85025; 85610; 85730 ×2; G0378 ×2; J1644 ×3

== ENCOUNTER → 2023-03-29 | Outpatient (CLI) | payer BC ==
--- NOTE | 2023-03-29 15:28 | US ---
EXAMINATION TYPE: US venous doppler duplex UE LT DATE OF EXAM: 03/29/2023 COMPARISON: NONE CLINICAL INDICATION: Female, 62 years old with history of I82.509 CHRONIC EMBOLISM; recent IV in left arm, h/o DVT in legs, SVT in right arm 1 week ago, and h/o PE's, patient states she has not heredita ry clotting disorder SIDE PERFORMED: Left Findings: Left Arm: Internal echoes with minimal flow seen within subclavian vein, also basilic vein has inter nal echoes that do not fully compress, probable DVT and SVT spoke with Melanie CLEMENTS and she would like patient taken to ER IMPRESSION: 1. Incomplete compression with internal echoes within the basilic vein suggesting SVT. 2. Similar internal echoes within the subclavian vein suggesting positive for DVT.
== END | disposition home or self-care (01) ==
LOC: RADUSWWP 14:00
PROVIDERS: ATTEND Family Medicine
DX: I82.502 Chronic embolism and thrombosis of unspecified deep veins of left lower extremity (principal)

== ENCOUNTER → 2023-11-14 | Outpatient (CLI) | payer OTHER ==
--- NOTE | 2023-11-14 16:30 | XR ---
EXAMINATION TYPE: XR hand complete LT DATE OF EXAM: 11/14/2023 CLINICAL HISTORY: pain TECHNIQUE: Frontal, lateral and oblique images of the left hand are obtained. COMPARISON: None. FINDINGS: There is no acute fracture/dislocation evident. The joint spaces appear mildly narrowed. T he overlying soft tissue appears unremarkable. IMPRESSION: There is no acute fracture or dislocation. ICD 10 NO FRACTURE, INITIAL EVALUATION
--- NOTE | 2023-11-14 16:34 | XR ---
EXAMINATION TYPE: XR knee complete RT DATE OF EXAM: 11/14/2023 CLINICAL HISTORY: pain TECHNIQUE: Three views of the right knee are obtained. COMPARISON: None. FINDINGS: There is no acute fracture/dislocation. The tri-compartment joint spaces appear within no rmal limits. The overlying soft tissue appears unremarkable. IMPRESSION: There is no acute fracture or dislocation.ICD 10 NO FRACTURE, INITIAL EVALUATION
== END | disposition home or self-care (01) ==
LOC: RADXRMAIN 15:28
PROVIDERS: ATTEND Emergency Medicine
DX: S60.012A Contusion of left thumb without damage to nail, initial encounter (principal); S80.01XA Contusion of right knee, initial encounter; M79.642 Pain in left hand; M25.561 Pain in right knee; X58.XXXA Exposure to other specified factors, initial encounter

== ENCOUNTER → 2024-05-09 | Outpatient (CLI) | payer BC ==
--- NOTE | 2024-05-09 14:22 | XR ---
EXAMINATION TYPE: XR chest 2V DATE OF EXAM: 05/09/2024 2:12 PM CLINICAL INDICATION: Female, 63 years old with history of R05.3 CHRONIC COUGH; [facility] COMPARISON: None TECHNIQUE: XR chest 2V Frontal view of the chest. FINDINGS: Lungs/Pleura: There is no evidence of pleural effusion, focal consolidation, or pneumothorax. Pulmonary vascularity: Unremarkable. Heart/mediastinum: Cardiomediastinal silhouette is unremarkable. Large hiatal hernia projects over th e heart. Musculoskeletal: No acute osseous pathology. Other findings: None IMPRESSION: 1. No acute cardiopulmonary disease/process. 2. Large hiatal hernia present which can predispose patients to reflux. Correlate for reflux given p atient's chronic cough. [facility], , 05/09/2024 2:20 PM
== END ==
LOC: RADXRMAIN 14:00
PROVIDERS: ATTEND Nurse Practitioner Family
CPT/HCPCS: 71046

== ENCOUNTER → 2024-08-07 | Outpatient (CLI) | payer OTHER ==
--- NOTE | 2024-08-07 15:18 | XR ---
EXAMINATION TYPE: XR thoracic spine complete DATE OF EXAM: 08/07/2024 3:00 PM COMPARISON: None. CLINICAL INDICATION: Female, 64 years old with history of S20.SS1A, S30.0XXA, pain TECHNIQUE: 3 view(s) obtained. FINDINGS: There are 12 thoracic type vertebral bodies. Pedicles are intact. Mild disc space narrowing is presen t. There is some exaggeration of the thoracic kyphosis within the mid thoracic spine. Note is made of a large hiatal hernia. IMPRESSION: 1. Exaggerated thoracic kyphosis. 2. Hiatal hernia [facility], , 08/07/2024 3:16 PM
--- NOTE | 2024-08-07 15:20 | XR ---
EXAMINATION TYPE: XR lumbar spine 2 or 3V DATE OF EXAM: 08/07/2024 3:00 PM COMPARISON: None. CLINICAL INDICATION: Female, 64 years old with history of S20.221A, S30.0XXA, pain TECHNIQUE: 3 view(s) obtained. FINDINGS: 5 lumbar type vertebral bodies. Pedicles are intact. No acute disc changes evident. Vertebral body he ights are preserved. IMPRESSION: 1. No suspicious acute changes lumbar spine [facility], , 08/07/2024 3:18 PM
== END | disposition home or self-care (01) ==
LOC: RADXRMAIN 14:26
PROVIDERS: ATTEND Emergency Medicine
DX: S20.221A Contusion of right back wall of thorax, initial encounter (principal); S30.0XXA Contusion of lower back and pelvis, initial encounter; K44.9 Diaphragmatic hernia without obstruction or gangrene; M40.294 Other kyphosis, thoracic region; X58.XXXA Exposure to other specified factors, initial encounter
CPT/HCPCS: 72072; 72100

== ENCOUNTER 2024-11-05 13:24 | Emergency (ER) | payer BC, OTHER ==
[2024-11-05 13:33] VITALS: TEMP 97.7
--- NOTE | 2024-11-05 14:14 | XR ---
EXAMINATION TYPE: XR lumbar spine 2 or 3V DATE OF EXAM: 11/05/2024 CLINICAL HISTORY: pain TECHNIQUE: Three views of the lumbar spine are submitted. COMPARISON: Lumbar spine radiograph 08/07/2024, 03/22/2023 FINDINGS: There are 5 lumbar type vertebral bodies identified. The lumbar spine shows satisfactory alignment w ithout evidence of acute fracture or dislocation. Vertebral body heights are within normal limits. Disc space narrowing at T11-T12 with endplate sclerosis. The overlying soft tissue appears unremarka ble. IMPRESSION: No acute fracture or dislocation is seen in the lumbar spine. [facility], , 11/05/2024 2:12 PM
--- NOTE | 2024-11-05 14:27 | ED ---
General Adult HPI - General Chief complaint: Recheck/Abnormal Lab/Rx Stated complaint: L leg pain Time Seen by Provider: 11/05/24 13:33 Source: patient, RN notes reviewed Mode of arrival: ambulatory Limitations: no limitations - History of Present Illness Initial comments: 64-year-old female presents emergency department chief complaint of left leg pain. Patient states worse at nighttime when she lays down. Patient is concerned about having DVT she does have a history of DVT and symptoms are consistent she denies any swelling she denies any bowel, bladder encounter time she does have a knot in her back denies any prior back issues. She has no dysuria no discoloration of her leg no swelling noted. - Related Data Home Medications Medication Instructions Recorded Confirmed Aspirin EC [Ecotrin] 325 mg PO DAILY 03/22/23 03/29/23 Famotidine 20 mg PO DAILY 03/22/23 03/29/23 Apixaban [Eliquis Starter Pack 5 - 10 mg PO DIRECTED 03/29/23 03/29/23 (for VTE)] Cetirizine HCl [Zyrtec] 10 mg PO DAILY 03/29/23 03/29/23 Previous Rx's Medication Instructions Recorded predniSONE 50 mg PO DAILY #5 tab 11/05/24 Allergies Allergy/AdvReac Type Severity Reaction Status Date / Time Iodinated Contrast Media Allergy Dyspnea Verified 11/05/24 13:33 Review of Systems ROS Statement: Those systems with pertinent positive or pertinent negative responses have been documented in the HPI. ROS Other: All systems not noted in ROS Statement are negative. Past Medical History Past Medical History: Deep Vein Thrombosis (DVT), GERD/Reflux Additional Past Medical History / Comment(s): blood clot left leg History of Any Multi-Drug Resistant Organisms: None Reported Past Surgical History: Bladder Surgery, Hysterectomy Past Psychological History: No Psychological Hx Reported Smoking Status: Never smoker Past Alcohol Use History: Occasional Past Drug Use History: None Reported General Exam Limitations: no limitations General appearance: alert, in no apparent distress Head exam: Present: atraumatic, normocephalic, normal inspection Eye exam: Present: normal appearance, PERRL, EOMI. Absent: scleral icterus, conjunctival injection, periorbital swelling ENT exam: Present: normal exam, normal oropharynx, mucous membranes moist Neck exam: Present: normal inspection, full ROM. Absent: tenderness, meningismus, lymphadenopathy Respiratory exam: Present: normal lung sounds bilaterally. Absent: respiratory distress, wheezes, rales, rhonchi, stridor Cardiovascular Exam: Present: regular rate, normal rhythm, normal heart sounds. Absent: systolic murmur, diastolic murmur, rubs, gallop, clicks Extremities exam: Present: normal inspection, full ROM, normal capillary refill, other (pedal pulses equal, no swelling). Absent: tenderness, pedal edema, joint swelling, calf tenderness Back exam: Present: full ROM. Absent: tenderness, paraspinal tenderness Course Vital Signs 11/05/24 11/05/24 11/05/24 13:30 14:25 14:29 Temperature 97.7 F Pulse Rate 82 84 Respiratory 18 20 20 Rate Blood Pressure 119/81 132/85 O2 Sat by Pulse 95 97 Oximetry Medical Decision Making - Medical Decision Making Was pt. sent in by a medical professional or institution (, PA, LAMINATION BUILDER, urgent care, hospital, or prison...) When possible be specific @ -No Did you speak to anyone other than the patient for history (EMS, parent, family, police, friend...)? What history was obtained from this source @ -No Did you review nursing and triage notes (agree or disagree)? Why? @ -I reviewed and agree with nursing and triage notes Were old charts reviewed (outside hosp., previous admission, EMS record, old EKG, old radiological studies, urgent care reports/EKG's, prison records)? Report findings @ -No old charts were reviewed Differential Diagnosis (chest pain, altered mental status, abdominal pain women, abdominal pain men, vaginal bleeding, weakness, fever, dyspnea, syncope, headache, dizziness, GI bleed, back pain, seizure, CVA, palpatations, mental health, musculoskeletal)? @ -[Differential Musculoskeletal Muscular strain, contusion, ligament sprain, fracture, arthritis, septic arthritis, bursitis, cellulitis, muscle spasm, nerve compression, DVT, arterial occlusion, herpes zoster, electrolyte abnormality, tumor.... This is not meant to be in all inclusive list EKG interpreted by me (3pts min.). @ -None X-rays interpreted by me (1pt min.). @ -X-ray lumbar spine showing mild degenerative changes CT interpreted by me (1pt min.). @ -None done U/S interpreted by me (1pt. min.). @ -[Altered, venous Doppler negative for acute DVT of the left What testing was considered but not performed or refused? (CT, X-rays, U/S, labs)? Why? @ -None What meds were considered but not given or refused? Why? @ -None Did you discuss the management of the patient with other professionals (professionals i.e. Dr., PA, LAMINATION BUILDER, lab, RT, psych nurse, social service coordinator, marketing agent, teacher, investigation officer, caser)? Give summary @ -No Was smoking cessation discussed for >3mins.? @ -No Was critical care preformed (if so, how long)? @ -No Were there social determinants of health that impacted care today? How? (Homelessness, low income, unemployed, alcoholism, drug addiction, transp ortation, low edu. Level, literacy, decrease access to med. care, [facility], rehab)? @ -No Was there de-escalation of care discussed even if they declined (Discuss DNR or withdrawal of care, Hospice)? DNR status @ -No What co-morbidities impacted this encounter? (DM, HTN, Smoking, COPD, CAD, Cancer, CVA, ARF, Chemo, Hep., AIDS, mental health diagnosis, sleep apnea, morbid obesity)? @ -None Was patient admitted / discharged? Hospital course, mention meds given and route, prescriptions, significant lab abnormalities, going to OR and other pertinent info. @ -Discharge patient has left leg pain more likely related to radicular pain there is no evidence of DVT patient has good arterial pulses. Patient discharged in stable condition return parameters otis. Undiagnosed new problem with uncertain prognosis? @ -No Drug Therapy requiring intensive monitoring for toxicity (Heparin, Nitro, Insulin, Cardizem)? @ -No Were any procedures done? @ -No Diagnosis/symptom? @ -Pain radicular lumbar Acute, or Chronic, or Acute on Chronic? @ -Acute Uncomplicated (without systemic symptoms) or Complicated (systemic symptoms)? @ -Uncomplicated Side effects of treatment? @ -No Exacerbation, Progression, or Severe Exacerbation? @ -No Poses a threat to life or bodily function? How? (Chest pain, USA, MD, pneumonia, PE, COPD, DKA, ARF, appy, cholecystitis, CVA, Diverticulitis, Homicidal, Suicidal, threat to staff... and all critical care pts) @ -No Disposition Clinical Impression: Leg pain, Lumbar radicular pain Disposition: HOME SELF-CARE Condition: Stable Instructions (If sedation given, give patient instructions): Leg Pain (ED) Additional Instructions: Please return to the Emergency Department if symptoms worsen or any other concerns. Prescriptions: predniSONE 50 mg PO DAILY #5 tab Is patient prescribed a controlled substance at d/c from ED?: No Referrals: Ken Hudson DO [Primary Care Provider] - 1-2 days Time of Disposition: 15:09
--- NOTE | 2024-11-05 15:04 | US ---
EXAMINATION TYPE: US venous doppler duplex LE LT DATE OF EXAM: 11/05/2024 2:53 PM COMPARISON: US(03/22/2023) CLINICAL INDICATION: Female, 64 years old with history of pain; Lt leg pain x 2 weeks, hx of DVT 2019 per pt, currently on eloquist, hx of dvt in rt arm as well 2022, Pain TECHNIQUE: The lower extremity deep venous system is examined utilizing real time linear array sonog jacquelyn with graded compression, color doppler sonography, and spectral doppler. SIDE PERFORMED: Left FINDINGS: VESSELS IMAGED: Common Femoral Vein Deep Femoral Vein Greater Saphenous Vein * Femoral Vein Popliteal Vein Small Saphenous Vein * Proximal Calf Veins (* superficial vessels) Left Leg: appears negative, Color Doppler imaging shows patency of the vessels. Spectral waveforms a re within normal limits. IMPRESSION: No visualized deep venous thrombosis of the left lower extremity. [facility], , 11/05/2024 3:02 PM
[2024-11-05 15:19] VITALS: BP 141/91; PULSE 67; RESP 16
== END 2024-11-05 15:21 | disposition home or self-care (01) ==
LOC: EC 13:24
DX: M54.16 Radiculopathy, lumbar region (principal); M79.605 Pain in left leg; Z91.041 Radiographic dye allergy status
CPT/HCPCS: 72100; 99284